=== PATIENT | male | born 1990 | race Caucasian/White ===

== ENCOUNTER 2020-08-11 09:14 | Emergency (ER) | payer BC, OTHER ==
[2020-08-11] MEDS ORDERED: IBU800 MG PO ×2 (11:21→11:56)
[2020-08-11] MEDS ORDERED: ENDOCET 5-3251 EACH PO ×2 (11:21→11:56)
[2020-08-14] MEDS ORDERED: HYDROCODON-ACE1 EAC6 PO (12:04)
== END 2020-08-11 12:03 | disposition home or self-care (01) ==
LOC: ER1 09:14
DX: S62.314A Displaced fracture of base of fourth metacarpal bone, right hand, initial encounter for closed fracture (principal); S62.316A Displaced fracture of base of fifth metacarpal bone, right hand, initial encounter for closed fracture; W22.8XXA Striking against or struck by other objects, initial encounter; Y92.009 Unspecified place in unspecified non-institutional (private) residence as the place of occurrence of the external cause
CPT/HCPCS: 29125; 73110; 73130; 99283

== ENCOUNTER → 2020-08-14 | Day surgery (SDC) | payer BC, OTHER ==
[~2020-08-14] VITALS: Ht 175.3 cm; Wt 89.4 kg
[~2020-08-14] MED LIST: ENDOCET 5-3251 EACH PO; HYDROCODON-ACE1 EAC6 PO; IBU800 MG PO
== END | disposition home or self-care (01) ==
LOC: OR 08:44
DX: S62.314A Displaced fracture of base of fourth metacarpal bone, right hand, initial encounter for closed fracture (principal); S62.316A Displaced fracture of base of fifth metacarpal bone, right hand, initial encounter for closed fracture; F17.210 Nicotine dependence, cigarettes, uncomplicated; Z79.1 Long term (current) use of non-steroidal anti-inflammatories (NSAID); Z20.822 Contact with and (suspected) exposure to COVID-19; W22.8XXA Striking against or struck by other objects, initial encounter
CPT/HCPCS: 73130; 76000; C1713; J0171; J0690; J1100; J2001; J2250; J2405; J2704; J2795; J3010; J7120; U0002

== ENCOUNTER 2020-11-26 00:50 | Emergency (ER) | payer BC ==
[2020-11-26] MEDS ORDERED: OMNICEF 300 MG300 MG PO (01:40)
== END 2020-11-26 02:25 | disposition home or self-care (01) ==
LOC: ER1 00:50
DX: S62.637B Displaced fracture of distal phalanx of left little finger, initial encounter for open fracture (principal); F17.200 Nicotine dependence, unspecified, uncomplicated; Z23 Encounter for immunization; X58.XXXA Exposure to other specified factors, initial encounter
CPT/HCPCS: 12002; 73130; 90471; 90715; 96372; 99283

== ENCOUNTER 2021-01-29 10:00 | Emergency (ER) | payer BC ==
[~2021-01-29 10:00] MED LIST changes: +OMNICEF 300 MG300 MG PO
== END 2021-01-29 11:18 | disposition home or self-care (01) ==
LOC: ER1 10:00
DX: S62.324A Displaced fracture of shaft of fourth metacarpal bone, right hand, initial encounter for closed fracture (principal); F17.210 Nicotine dependence, cigarettes, uncomplicated; Y04.0XXA Assault by unarmed brawl or fight, initial encounter
CPT/HCPCS: 29125; 73130; 99283